=== PATIENT | male | born 1970 | race Caucasian/White ===

== ENCOUNTER 2021-01-14 14:47 | Emergency (ER) | payer MEDICARE ==
[~2021-01-14 14:47] MED LIST: FLAGYL500 MG PO; ZOFRAN4 MG PO
[2021-01-14 15:17] LABS: HEMOGLOBIN 15.6 gm/dl (14.0-17.5); RED BLOOD COUNT 4.87 M/UL (4.20-5.50); WHITE BLOOD COUNT 15.4 K/UL (4.5-11.0)
[2021-01-14 15:40] LABS: BUN/CREATININE RATIO 15 (0-10)
[2021-01-14] MEDS ORDERED: IBUPROFEN600 MG PO (21:02)
[2021-01-14] MEDS ORDERED: HYDROCODON-ACE1 EAC4 PO (21:02)
[2021-01-14] MEDS ORDERED: ZOFRAN ODT 4 MG4 MG SL (21:02)
== END 2021-01-14 21:07 | disposition home or self-care (01) ==
LOC: ER1 14:47
PROVIDERS: Emergency Medicine
DX: N13.2 Hydronephrosis with renal and ureteral calculous obstruction (principal); E11.9 Type 2 diabetes mellitus without complications; F17.200 Nicotine dependence, unspecified, uncomplicated
CPT/HCPCS: 80053; 81001; 83690; 85025; 96374; 96375; 96376; 99284; J1885; J2270; J2405; J7030